=== PATIENT | female | born 1960 | race Caucasian/White ===

== ENCOUNTER 2017-01-11 09:08 | Emergency (ER) | payer OTHER ==
--- NOTE | 2017-01-11 12:16 | ED CLINICAL REPORT ---
Clinical Report - Physicians/Mid Levels Formerly [facility] [address] [place] [address] 01/11/2017 9:11 Patient: JESSICA FRANCOIS Time Seen: 09:44. Arrived- By private vehicle. Historian- patient. HISTORY OF PRESENT ILLNESS Chief Complaint: VOMITING and DIARRHEA. ABDOMINAL CRAMPS. This started about 2 days ago and is still present. It was gradual in onset and has been waxing/waning. No recent travel. She has had nausea and moderate abdominal pain. The pain is described as located in the upper abdomen. She has had vomiting (3 days ago - none since). The vomiting has occurred several times. No bilious emesis, blood-tinged emesis or frankly bloody emesis. She has had moderate diarrhea (3 days ago, none since). This has occurred several times. It has been watery. No bloody diarrhea. No black stools or bloody stools. Has not recently been camping or on antibiotics. The illness is described as moderate. Similar symptoms previously: Recent medical care: Not recently seen/assessed. REVIEW OF SYSTEMS The patient has had fever. No difficulty with urination, dark urine, headache, dizziness or sore throat. No cough, chest pain, difficulty breathing, excessive urination or skin rash. No jaundice, fainting episodes or blurred vision. Denies current . All systems otherwise negative, except as recorded above. PAST HISTORY See nurses notes. PCP: Dr Vazquez - [place] in [place] SURGERIES: Dilatation & Curettage. Ovarian cyst. Surgery for uterine hemorrhage. Attention deficit and hyperactivity disorder (taking Adderall for about 6 months). Medications: Adderall Oral 25 mg daily, XR. Allergies: Inapsine. Zithromax. SOCIAL HISTORY Smoker- current status unknown. Alcohol use; consumes about three liquor weekly. No drug use. ADDITIONAL NOTES The nursing notes have been reviewed. PHYSICAL EXAM Vital Signs: 01/11/2017 10:01 BP: 140/100. HR: 84. RR: 22. O2 saturation: 100%. Temp: 97.9 F. Pain level now: 7/10. Appearance: Alert. Oriented X3. Patient in moderate distress. Eyes: Eyes normal inspection. No pale conjunctivae or scleral icterus. ENT: Pharynx normal. No pharyngeal erythema or tonsillar exudate. The mucous membranes are not dry. Neck: Normal inspection. Neck supple. CVS: Heart sounds normal. Pulses normal. Respiratory: No respiratory distress. Breath sounds normal. Abdomen: Soft and nontender. Back: Normal inspection. Skin: Skin warm and dry. Normal skin color. No rash. Normal skin turgor. Extremities: Extremities exhibit normal ROM. No lower extremity edema. No calf tenderness. No lower extremity edema. Neuro: Oriented X 3. No motor deficit. No sensory deficit. LABS, X-RAYS, AND EKG Abdominal Sonogram: Normal study. The gallbladder is normal. Common duct is normal. Normal liver. Pancreas normal. Aorta normal. Kidney normal. No free fluid. The study was discussed with the radiologist (via tech). The study was interpreted by the radiologist. Laboratory Tests: UA-Culture if indicated: (ELBERT: 01/11/2017 10:10) ( [facility] 01/11/2017 10:35) Final results Test Result Flag Units (Reference) URINE COLOR YELLOW URINE APPEARANCE CLEAR URINE GLUCOSE NEGATIVE (NEGATIVE) URINE BILIRUBIN NEGATIVE (NEGATIVE) URINE KETONE NEGATIVE (NEGATIVE) URINE SPECIFIC GRAVITY 1.010 (1.010-1.030) URINE PH 6.0 (5.0-8.0) URINE PROTEIN NEGATIVE (NEGATIVE) URINE UROBILINOGEN 0.2 EU/dL (0.2-1.0) URINE NITRITE NEGATIVE (NEGATIVE) URINE BLOOD TRACE-INTACT (NEGATIVE) URINE LEUK ESTERASE NEGATIVE (NEGATIVE) URINE RBC 1-3 rbc/hpf (0-1) URINE WBC 0-1 wbc/hpf (0-1) URINE EPITHELIAL CELLS 0-1 EPI/hpf (0-5) URINE BACTERIA TRACE (<1+) (NONE SEEN) URINE COMMENT CULT NOT INDICATED URINE CULTURES ARE SET-UP BASED ON THE FOLLOWING CRITERIA:POSITIVE NITRITEPOSITIVE LEUKOCYTE ESTERASEGREATER THAN 10 WHITE BLOOD CELLSMODERATE (2+) OR GREATER BACTERIA CBC w Diff: (ELBERT: 01/11/2017 09:55) ( [facility] 01/11/2017 10:25) Final results Test Result Flag Units (Reference) WHITE BLOOD COUNT 6.1 K/uL (4.5-11.5) RED BLOOD COUNT 4.30 M/uL (4.00-5.20) HEMOGLOBIN 14.5 gm/dL (12.0-16.0) HEMATOCRIT 42.3 % (36.0-46.0) MEAN CELL VOLUME 98 fL (80-100) MEAN CORPUSCULAR HGB 34 pg (26-34) MEAN CORPUSCULAR HGB CONC 34 g/dL (31-37) RED CELL DISTRIBUTION WIDTH 12.3 % (11.6-14.8) PLATELET COUNT 178 K/uL (150-400) NEUTROPHIL % 59.2 % (50-75) LYMPH % 29.9 % (25-40) MONO % 8.9 % (3-14) EOSINOPHIL % 1.5 % (0-4) BASOPHIL % 0.5 % (0-2) PT with INR: (ELBERT: 01/11/2017 09:55) ( [facility] 01/11/2017 10:27) Final results Test Result Flag Units (Reference) INR 0.9 (0.8-1.2) Low Intensity Therapy: INR 1.5-2.0 PT range 18.5-23.1Mod.Intensity Therapy: INR 2.0-3.0 PT range 23.1-31.5High Intensity Therapy: INR 2.5-3.5 PT range 27.4-35.5High Intensity Therapy 2: INR 3.0-4.0 PT range 31.5-39.3 BNP: (ELBERT: 01/11/2017 09:55) ( [facility] 01/11/2017 10:46) Final results Test Result Flag Units (Reference) B-TYPE NATRIURETIC PEPTIDE 25.8 pg/ml (5-100) Lactate, Serum: (ELBERT: 01/11/2017 10:26) ( [facility] 01/11/2017 11:12) Final results Test Result Flag Units (Reference) LACTIC ACID 0.7 mmol/L (0.4-2.0) CHEM 13 PANEL: (ELBERT: 01/11/2017 09:55) ( Msg[facility]cv[facility] 01/11/2017 10:42) Final results Test Result Flag Units (Reference) GLUCOSE 96 mg/dL (70-110) BUN 6 L mg/dL (7-18) CREATININE 0.6 mg/dL (0.6-1.3) Estimated GFR >60 mL/min Estimated GFR- >60 mL/min Note: Persistent reduction over 3 months in eGFR<60 mL/min/1.73 m2 defines CKD. Patients with eGFR values>=60 mL/min/1.73 m2 may also have CKD if evidence ofpersistent proteinuria. Additional information may be foundat www.kidney.org. SODIUM 139 mmol/L (136-145) POTASSIUM 3.9 mmol/L (3.5-5.1) CHLORIDE 102 mmol/L (98-107) CARBON DIOXIDE 25 mmol/L (21-32) CALCIUM 9.2 mg/dL (8.5-10.1) TOTAL PROTEIN 7.5 g/dL (6.4-8.2) ALBUMIN 3.8 g/dL (3.3-5.0) BILIRUBIN, TOTAL 0.5 mg/dL (0.0-1.0) ALKALINE PHOSPHATASE 74 U/L (46-116) AST (SGOT) 70 H U/L (15-37) ALT (SGPT) 107 H U/L (12-78) CPK 51 U/L (24-260) MAGNESIUM 1.8 mg/dL (1.8-2.4) LIPASE 132 U/L (73-393) AMYLASE 47 U/L (25-115) TROPONIN I <0.05 L ng/mL (0.00-1.5) TROPONIN REFERENCE RANGE:<0.1 NEGATIVE0.1-1.5 INDETERMINANT>1.5 POSITIVE ETHYL ALCOHOL 3 mg/dL (3-10) . Pulse Oximetry: 01/11/2017 10:01 O2 saturation: 100%. (FIO2 - room air). Interpretation: normal. PROGRESS AND PROCEDURES Course of Care: Normal Saline 1 liter IVPB given. Zofran 4 mg IVP given. Protonix 40 mg IVP given. Demerol 25mg IVP given. Nonsurgical abdominal exam now. Other than mild transaminase elevation, there are no other lab abnormalities. US is completely normal. 12:15 01/11/17. Patient is stable. Physical exam findings are improved. Symptoms much better. 01/11/2017 12:36 BP: 135/90. HR: 64. RR: 20. O2 saturation: 100%. Temp: 98.7 F. Pain level now: 10. Patient/family counseled. Disposition: Discharged. Condition: stable and improved. CLINICAL IMPRESSION Vomiting with nausea. Not intractable or bilious. Diarrhea Acute epigastric abdominal pain of undetermined cause. Acute alcoholic gastritis. No hemorrhagic gastritis. Abnormal liver function test: AST/SGOT and ALT/SGPT. Possible essential hypertension (transient). INSTRUCTIONS Rest. Do not work for three days. Drink plenty of fluids. No alcohol. Do not smoke. Seek medical help to quit smoking. (MANDATORY RECHECK IN 12 - 24 HOURS UNLESS BETTER). Warnings: Further evaluation is necessary in order to recheck abnormal lab, obtain test results, conduct further tests and assess the possibility of serious illness. It is very important to follow up with a physician. SEDATIVE MEDICATION: You were given sedative medication during your visit. Do not drive or operate dangerous machinery. CONTROLLED SUBSTANCE WARNINGS. GENERAL WARNINGS: Return or contact your physician immediately if your condition worsens or changes unexpectedly, if not improving as expected, or if other problems arise. Your Current Medications: CONTINUE TAKING THE FOLLOWING MEDICATIONS: Adderall Oral : 25 mg daily, XR. Prescription Medications: Hydrocodone/APAP 5mg / 325mg: take 1-2 orally every 8 hours as needed for pain. Dispense ten (10). No refill. Zofran (orally disintegrating tablets) 4 mg: take 1 orally every 8 hours as needed for nausea and vomiting. Dispense ten (10). No refill. Substitution is permissible. Prilosec 20 mg capsules: Take 1 capsule orally once daily. Dispense fifteen (15). No refills. Substitution is permissible. Follow-up: Follow up with your doctor Taylor - or colleague at [facility] tomorrow. Screening today revealed the patient's blood pressure to be in the hypertensive range. The patient should follow up with a primary care provider for blood pressure management. (Electronically signed by Perez Buenrostro DO 01/11/2017 17:37)
--- NOTE | 2017-01-11 12:16 | ED NURSING NOTES ---
Clinical Report - Nurses [facility] [address] [place] [address] 01/11/2017 9:11 Patient: JESSICA FRANCOIS TRIAGE Triage time 10:01. Acuity: LEVEL 3. Chief Complaint: ABDOMINAL PAIN, NAUSEA and VOMITING and (started with nausea/vomiting/diarrhea, now pt states she is having sharp stabbing pains in abdomen that kept her awake since midnight last night). 10:08 01/11/17. Alert. OLEG COMA SCORE: Oleg Coma Scale: 15- eyes open spontaneously (4); best verbal response- oriented x 4 (5); best motor response- obeys commands (6). --10:09 Julianna Bennett R.N. 10:01 01/11/17. BP: 140/100. HR: 84. RR: 22. O2 saturation: 100%. Temp: 97.9 F. Pain level now: 04/07. --10:09 Julianna Bennett R.N. Weight: 58.9 kg stated. Height/Length: 62 inches Per Patient. BMI: 23.8. --10:03 Julianna Bennett R.N. Medications Adderall Oral 25 mg daily, XR. --10:03 Julianna Bennett R.N. Allergies Inapsine. Zithromax. --10:03 Julianna Bennett R.N. History Arrived by private vehicle. Historian: patient. Accompanied by (SON). Primary physician (Klem). Onset. (2 days ago). Treatment MEDIA LIBRARIAN: None. PAST MEDICAL HX: Immunizations: up-to-date. Last normal menstrual period- 9 months ago. Denies current . SOCIAL HX: Heavy tobacco smoker (cigarette)- 1 pack per day. Alcohol use; consumes three liquor drinks weekly. No drug use. The patient was not exposed to MRSA. NUTRITIONAL RISK ASSESSMENT: The nutritional risk assessment revealed no deficiencies. FUNCTIONAL ASSESSMENT: Functional assessment: no impairments noted. LEARNING NEEDS ASSESSMENT: The learning needs assessment revealed no barriers. ABUSE ASSESSMENT: Abuse assessment: ("YES") The patient was asked "Do you feel safe in your home?". --10:09 Julianna Bennett R.N. ADDITIONAL SURGERIES: Dilatation & Curettage. Ovarian cyst. Surgery for uterine hemorrhage. --10:08 Julianna Bennett R.N. Interventions ID band on patient. To room. --10:09 Julianna Bennett R.N. PHYSICAL ASSESSMENT 10:01/11/17. Patient gowned. GENERAL / NEURO / PSYCH: Appears in pain, anxious and in distress. --10:09 Julianna Bennett R.N. NURSING PROGRESS NOTES 09:56 01/11/2017 Site #1 started via IV in the left wrist with an 20g angiocath; two attempts. Blood drawn: rainbow set. Labeled in the presence of the patient and sent to the lab. Saline lock flushed with saline. --10:01 Julianna Bennett R.N. 10:01/11/17. Head of bed elevated. Reassurance given. Patient identifiers checked. Call light placed in reach. Bed placed in lowest position. Patient ready for evaluation- chart flagged and ED physician notified (ERMD has already been in room). --10:09 Julianna Bennett R.N. 10:15. Care transferred (to Margaret GRESHAM). --10:25 Julianna Bennett R.N. 10:22. ( lab here to draw lactate). --10:28 Margaret Metz R.N. 10:20 01/11/2017 Started bag #1 1000 mL IV Fluids IV NS (Saline); at 1000 mL/hr over 1 hour(s) via site #1 via IV pump. IV patency established. IV site checked: no pain, redness, or swelling. IV flushed thoroughly pre- and post-medication administration. --10:29 Margaret Metz R.N. 10:21 01/11/2017 Zofran (Ondansetron HCl) IVP 4 mg given over 1 minute(s) via site #1. IV patency established. IV site checked: no pain, redness, or swelling. IV flushed thoroughly pre- and post-medication administration. IVP given by RN. --10:29 Margaret Metz R.N. 10:22 01/11/2017 PROTONIX (Pantoprazole Sodium) IVP 40 mg given over 2 minute(s) via site #1. IV patency established. IV site checked: no pain, redness, or swelling. IV flushed thoroughly pre- and post-medication administration. IVP given by RN. --10:30 Margaret Metz R.N. 10:25 01/11/17. BP: 135/83. HR: 63. RR: 22. O2 saturation: 100%. Temp: deferred. Pain level now: 04/07. Additional comments: Pt asking for pain meds, states she was not able to sleep during night due to pain. ERMD notified of request . --10:31 Margaret Metz R.N. 10:52 01/11/2017 Demerol (Meperidine HCl) IVP 25 mg given over 1 second(s) via site #1. IV patency established. IV site checked: no pain, redness, or swelling. IV flushed thoroughly pre- and post-medication administration. IVP given by RN. --10:52 Margaret eMtz R.N. 10:50 01/11/17. BP: 126/81. HR: 78. RR: 18. O2 saturation: 100%. Pain level now: 05/08. --10:54 Margaret Metz R.N. 11:05 01/11/17. Reassessment after medication administered. Overall patient status is the same- she states feels the same (pain 6/10 slightly better, but still having waves of pain, but now more point tenderness in lower midline abd instead of just under rib cage). --11:05 Margaret Metz R.N. 11:06 01/11/17. BP: 121/92. HR: 82. RR: 22. O2 saturation: 99%. Pain level now 6/10. --11:06 Margaret Metz R.N. 11:26 01/11/2017 IV Fluids IV NS Discontinued: bag #1 infused. Total amount infused: 1000 mL. IV patency established. IV site checked: no pain, redness, or swelling. IV flushed thoroughly. --11:31 Geovanna Davila R.N. 11:32 01/11/2017 Started bag #2 1000 mL IV Fluids IV NS (Saline); at 500 mL/hr over 2 hour(s) via site #1 via IV pump. Allergies verified and confirmed 5 rights. IV patency established. IV site checked: no pain, redness, or swelling. IV flushed thoroughly pre- and post-medication administration. --11:32 Geovanna Davila R.N. 11:25. ( Pt ambulated to bathroom). --12:03 Margaret Metz R.N. 11:50 US at bedside doing exam. --12:05 Margaret Metz R.N. 12:20 01/11/2017 Demerol (Meperidine HCl) IVP 25 mg given over 1 minute(s) via site #1. IV patency established. IV site checked: no pain, redness, or swelling. IV flushed thoroughly pre- and post-medication administration. IVP given by RN. --12:35 Margaret Metz R.N. 12:25 01/11/2017 Site #1 removed upon discharge. Bandaid applied. --12:36 Margaret Metz R.N. 12:25 01/11/2017 IV Fluids IV NS Discontinued: bag #2 STOPPED upon discharge. Total amount infused: 500 mL. IV patency established. IV site checked: no pain, redness, or swelling. IV flushed thoroughly. --12:35 Margaret Metz R.N. 12:15 ERMD in talking with pt and family at length regarding findings and need for follow up. --12:39 Margaret Metz R.N. 12:20 Pt given additional pain meds before IV dc'd for home. --12:39 Margaret Metz R.N. DISPOSITION / DISCHARGE 12:30. Condition at departure: improved and stable. No learning barriers present. Discharge instructions provided and reviewed with the patient and spouse. Reviewed medication(s) (vicodin, zofran, prilosec). Patient and spouse verbalized understanding. Written instructions provided in Mongolian. The patient was discharged home and accompanied by spouse. She left the Emergency Department ambulatory and via private vehicle. Spouse driving. --12:38 Margaret Metz R.N. 12:36 01/11/17. BP: 135/90. HR: 64. RR: 20. O2 saturation: 100%. Temp: 98.7 F. Pain level now: 02/05. --12:38 Margaret Metz R.N. Locked/Released at 01/11/2017 12:55 by Margaret Metz R.N.
--- NOTE | 2017-01-11 12:16 | ED ORDER SUMMARY ---
..... Patient: JESSICA FRANCOIS OrderSheet [facility] VisitID: [id number] [address] [place] [address] 56y, F Registration Date/Time: 01/11/2017 ORDER SHEET Weight: 58.9 kg (stated) Allergies: Inapsine, Zithromax GENERAL ORDERS: UA-Culture if indicated [facility] (Ack 10:02 TBergley) (10:11 LSullivan R.N.) [facility] (Ack 10:02 TBergley) (10:11 LSullivan R.N.) Lipase Urgent (01/11/2017 RUST DO) (Ack 10:02 TBergley) (10:11 LSullivan R.N.) Cardiac Panel Stat (01/11/2017 RUST) (Ack 10:02 TBergley) (10:11 LSullivan R.N.) PT with INR Urgent (01/11/2017 RUSTson ) (Ack 10:02 TBergley) (10:11 LSullivan R.N.) BNP Urgent (01/11/2017 RUSTson DO) (Ack 10:02 TBergley) (10:11 LSullivan R.N.) Ethyl Alcohol Urgent ([facility]11/2017 [facility] (Ack 10:02 TBergley) (10:11 LSullivan R.N.) Lactate, Serum Urgent (:01/11/2017 [facility]UST[facility]inson DO) (Ack 10:02 TBergley) (10:30 DDean R.N.) NPO (:[facility]/11/[facility] (Ack 10:02 TBergley) (10:11 LSullivan R.N.) US Abdomen Limited (Yes) Urgent (10:48 01/11/2017 [facility] (Ack 10:49 TBergley) (12:05 DDean R.N.) MEDICATION ORDERS: IV FLUIDS: IV NS : initial bolus 1000 mL (1000 mL/hr), then 500 mL/hr for X2 (NOW) (09:52 01/11/2017 [facility]) (10:29 DDean R.N.) Zofran IV 4 mg (NOW) (09:52 01/11/2017 [facility]) (10:29 DDean R.N.) Protonix IVP 40mg 40 mg (Mix in NS 10ml over 2min) (09:53 01/11/2017 [facility]) (10:30 DDean R.N.) Demerol IV 25 mg (HIGH ALERT MEDICATION, NOW) (10:39 01/11/2017 [facility]) (Ack 10:48 DDean R.N.) (10:52 DDean R.N.) Demerol IV 25 mg (NOW) (12:34 01/11/2017 DDean R.N. per protocol) (12:35 DDean R.N.) ORDER SHEET NOTES: [Electronically signed by Margaret Metz R.N. (12:55 01/11/2017)] [Electronically signed by Perez Buenrostro DO (17:37 01/11/2017)] [Electronically locked/signed by Margaret Metz R.N. (12:55 01/11/2017)]
--- NOTE | 2017-01-11 12:16 | ED ORDER SUMMARY ---
..... Patient: JESSICA FRANCOIS OrderSheet [facility] VisitID: [id number] [address] [place] [address] 56y, F Registration Date/Time: 01/11/2017 ORDER SHEET Weight: 58.9 kg (stated) Allergies: Inapsine, Zithromax GENERAL ORDERS: UA-Culture if indicated [facility] (Ack 10:02 TBergley) (10:11 LSullivan R.N.) [facility] (Ack 10:02 TBergley) (10:11 LSullivan R.N.) Lipase Urgent (01/11/2017 [facility] DO) (Ack 10:02 TBergley) (10:11 LSullivan R.N.) Cardiac Panel Stat (01/11/2017 [facility]) (Ack 10:02 TBergley) (10:11 LSullivan R.N.) PT with INR Urgent ([facility] (Ack 10:02 TBergley) (10:11 LSullivan R.N.) BNP Urgent ([facility]/11/[facility]) (Ack 10:02 TBergley) (10:11 LSullivan R.N.) Ethyl Alcohol [facility]11[facility] (Ack 10:02 TBergley) (10:11 LSullivan R.N.) Lactate, Serum Urgent [facility] (Ack 10:02 TBergley) (10:30 DDean R.N.) NPO (:[facility]11[facility] (Ack 10:02 TBergley) (10:11 LSullivan R.N.) US Abdomen Limited (Yes) Urgent (10:48 [facility]11/2017 [facility] (Ack 10:49 TBergley) (12:05 DDean R.N.) MEDICATION ORDERS: IV FLUIDS: IV NS : initial bolus 1000 mL (1000 mL/hr), then 500 mL/hr for X2 (NOW) (09:52 01/11/2017 [facility]) (10:29 DDean R.N.) Zofran IV 4 mg (NOW) (09:52 01/11/2017 [facility]) (10:29 DDean R.N.) Protonix IVP 40mg 40 mg (Mix in NS 10ml over 2min) (09:53 01/11/2017 [facility]) (10:30 DDean R.N.) Demerol IV 25 mg (HIGH ALERT MEDICATION, NOW) (10:39 01/11/2017 [facility]) (Ack 10:48 DDean R.N.) (10:52 DDean R.N.) Demerol IV 25 mg (NOW) (12:34 01/11/2017 DDean R.N. per protocol) (12:35 DDean R.N.) ORDER SHEET NOTES: [Electronically signed by Margaret Metz R.N. (12:55 01/11/2017)] [Electronically signed by Perez Buenrostro DO (17:37 01/11/2017)] [Electronically locked/signed by Margaret Metz R.N. (12:55 01/11/2017)]
--- NOTE | 2017-01-11 13:12 | DIAGNOSTIC IMAGING REPORT ---
PROCEDURE: US ABDOMEN ULTRASOUND-LIMITED INDICATION: RUQ PAIN TECHNIQUE: Patel scale and color Doppler sonographic images of the abdomen were obtained. COMPARISON: None. FINDINGS: Liver measures 16.1 cm with diffuse increased echogenicity. Normal gallbladder without gallstones or wall thickening. Normal CBD measures 4.1 mm. Negative Hess's sign. Normal pancreas. Aorta and IVC are patent. Normal hepatopetal flow. Right kidney measures 10.6 cm with a 9 mm lower pole cortical echogenic lesion suggestive of an angiomyolipoma. IMPRESSION: 1. Normal gallbladder 2. Hepatic steatosis versus intrinsic liver disease. 3. Right renal angiomyolipoma.
--- NOTE | 2017-01-11 17:37 | ED MAR SUMMARY ---
..... Medication Administration Record [facility] [address] [place] [address] Patient: JESSICA FRANCOIS Visit ID: [id number] 56y, F Weight: 58.9 kg Height/Length: 62 in BMI: 23.8 ALLERGIES: Inapsine, Zithromax Start 10:20 01/11/2017 Margaret Metz R.N., Stop 11:26 01/11/2017 Geovanna Davila R.N. Medication Administered: IV NS (SALINE), Dose: IV Fluids over 1 hour(s), Rate: 1000 mL/hr, Dispensed: 1000 mL bag, Site: #1 left wrist. Medication Ordered: IV NS : initial bolus 1000 mL (1000 mL/hr), then 500 mL/hr for X2 (NOW). Given 10:01/11/2017 Margaret Metz R.N. Medication Administered: ZOFRAN [IVP] (ONDANSETRON HCL), Dose: 4 mg IVP over 1 minute(s), Site: #1 left wrist. Medication Ordered: Zofran IV 4 mg (NOW). Given 10:01/11/2017 Margaret Metz R.N. Medication Administered: PROTONIX [IVP] (PANTOPRAZOLE SODIUM), Dose: 40 mg IVP over 2 minute(s), Site: #1 left wrist. Medication Ordered: Protonix IVP 40mg 40 mg (Mix in NS 10ml over 2min). Given 10:52 01/11/2017 Margaret Metz R.N. Medication Administered: DEMEROL [IVP] (MEPERIDINE HCL), Dose: 25 mg IVP over 1 second(s), Site: #1 left wrist. Medication Ordered: Demerol IV 25 mg (HIGH ALERT MEDICATION, NOW). Start 11:32 01/11/2017 Geovanna Davila R.N., Stop 12:01/11/2017 Margaret Metz R.N. Medication Administered: IV NS (SALINE), Dose: IV Fluids over 2 hour(s), Rate: 500 mL/hr, Dispensed: 1000 mL bag, Site: #1 left wrist. Medication Ordered: IV NS : initial bolus 1000 mL (1000 mL/hr), then 500 mL/hr for X2 (NOW). Given 12:20 01/11/2017 IsaíasMargaret R.N. Medication Administered: DEMEROL [IVP] (MEPERIDINE HCL), Dose: 25 mg IVP over 1 minute(s), Site: #1 left wrist. Medication Ordered: Demerol IV 25 mg (NOW).
--- NOTE | 2017-01-11 17:37 | ED MAR SUMMARY ---
..... Medication Administration Record [facility] [address] [place] [address] Patient: JESSICA FRANCOIS Visit ID: [id number] 56y, F Weight: 58.9 kg Height/Length: 62 in BMI: 23.8 ALLERGIES: Inapsine, Zithromax Start 10:20 01/11/2017 Margaret Metz R.N., Stop 11:26 01/11/2017 Geovanna Davila R.N. Medication Administered: IV NS (SALINE), Dose: IV Fluids over 1 hour(s), Rate: 1000 mL/hr, Dispensed: 1000 mL bag, Site: #1 left wrist. Medication Ordered: IV NS : initial bolus 1000 mL (1000 mL/hr), then 500 mL/hr for X2 (NOW). Given 10:01/11/2017 Margaret Metz R.N. Medication Administered: ZOFRAN [IVP] (ONDANSETRON HCL), Dose: 4 mg IVP over 1 minute(s), Site: #1 left wrist. Medication Ordered: Zofran IV 4 mg (NOW). Given 10:01/11/2017 Margaret Metz R.N. Medication Administered: PROTONIX [IVP] (PANTOPRAZOLE SODIUM), Dose: 40 mg IVP over 2 minute(s), Site: #1 left wrist. Medication Ordered: Protonix IVP 40mg 40 mg (Mix in NS 10ml over 2min). Given 10:52 01/11/2017 Margaret Metz R.N. Medication Administered: DEMEROL [IVP] (MEPERIDINE HCL), Dose: 25 mg IVP over 1 second(s), Site: #1 left wrist. Medication Ordered: Demerol IV 25 mg (HIGH ALERT MEDICATION, NOW). Start 11:32 01/11/2017 Geovanna Davila R.N., Stop 12:01/11/2017 Margaret Metz R.N. Medication Administered: IV NS (SALINE), Dose: IV Fluids over 2 hour(s), Rate: 500 mL/hr, Dispensed: 1000 mL bag, Site: #1 left wrist. Medication Ordered: IV NS : initial bolus 1000 mL (1000 mL/hr), then 500 mL/hr for X2 (NOW). Given 12:20 01/11/2017 IsaíasMargaret R.N. Medication Administered: DEMEROL [IVP] (MEPERIDINE HCL), Dose: 25 mg IVP over 1 minute(s), Site: #1 left wrist. Medication Ordered: Demerol IV 25 mg (NOW).
--- NOTE | 2017-01-11 17:37 | ED MED RECONCILIATION SUMMARY ---
Patient: JESSICA FRANCOIS Medication Reconciliation Report [facility] VisitID: [id number] [address] [place] [address] 56y, F Registration Date/Time: 01/11/2017 Weight: 58.9 kg Height/Length: 62 in. BMI: 23.8 ALLERGIES: Inapsine, Zithromax The patient's Home Medications are listed below: CONTINUE TAKING THE FOLLOWING MEDICATIONS: Adderall Oral 25 mg daily, XR The source(s) of the original Home Medication information: Not obtained. The following Medications were given to the patient in the Emergency Department: IV NS IV Fluids bolus 0, then 1000 mL/hr, administered: 01/11/2017 10:20:00 AM Zofran [IVP] IVP 4 mg, administered: 01/11/2017 10:21:00 AM PROTONIX [IVP] IVP 40 mg, administered: 01/11/2017 10:22:00 AM Demerol [IVP] IVP 25 mg, administered: 01/11/2017 10:52:00 AM IV NS IV Fluids bolus 0, then 500 mL/hr, administered: 01/11/2017 11:32:00 AM Demerol [IVP] IVP 25 mg, administered: 01/11/2017 12:20:00 PM The following Medications were prescribed to the patient: Hydrocodone/APAP 5mg / 325mg: take 1-2 orally every 8 hours as needed for pain. Dispense ten (10). No refill. -- Perez Buenrostro DO Zofran (orally disintegrating tablets) 4 mg: take 1 orally every 8 hours as needed for nausea and vomiting. Dispense ten (10). No refill. Substitution is permissible. -- Perez Buenrostro DO Prilosec 20 mg capsules: Take 1 capsule orally once daily. Dispense fifteen (15). No refills. Substitution is permissible. -- Perez Buenrostro DO
--- NOTE | 2017-01-11 17:37 | ED MED RECONCILIATION SUMMARY ---
Patient: JESSICA FRANCOIS Medication Reconciliation Report [facility] VisitID: [id number] [address] [place] [address] 56y, F Registration Date/Time: 01/11/2017 Weight: 58.9 kg Height/Length: 62 in. BMI: 23.8 ALLERGIES: Inapsine, Zithromax The patient's Home Medications are listed below: CONTINUE TAKING THE FOLLOWING MEDICATIONS: Adderall Oral 25 mg daily, XR The source(s) of the original Home Medication information: Not obtained. The following Medications were given to the patient in the Emergency Department: IV NS IV Fluids bolus 0, then 1000 mL/hr, administered: 01/11/2017 10:20:00 AM Zofran [IVP] IVP 4 mg, administered: 01/11/2017 10:21:00 AM PROTONIX [IVP] IVP 40 mg, administered: 01/11/2017 10:22:00 AM Demerol [IVP] IVP 25 mg, administered: 01/11/2017 10:52:00 AM IV NS IV Fluids bolus 0, then 500 mL/hr, administered: 01/11/2017 11:32:00 AM Demerol [IVP] IVP 25 mg, administered: 01/11/2017 12:20:00 PM The following Medications were prescribed to the patient: Hydrocodone/APAP 5mg / 325mg: take 1-2 orally every 8 hours as needed for pain. Dispense ten (10). No refill. -- Perez Buenrostro DO Zofran (orally disintegrating tablets) 4 mg: take 1 orally every 8 hours as needed for nausea and vomiting. Dispense ten (10). No refill. Substitution is permissible. -- Perez Buenrostro DO Prilosec 20 mg capsules: Take 1 capsule orally once daily. Dispense fifteen (15). No refills. Substitution is permissible. -- Perez Buenrostro DO
--- NOTE | 2017-01-11 17:37 | ED DISCHARGE INSTRUCTIONS ---
Patient: JESSICA FRANCOIS General Instructions [facility] VisitID: [id number] [address] [place] [place] [address] 56y, F Registration Date/Time: 01/11/2017 Vomiting with nausea. Not intractable or bilious. Diarrhea Acute epigastric abdominal pain of undetermined cause. Acute alcoholic gastritis. No hemorrhagic gastritis. Abnormal liver function test: AST/SGOT and ALT/SGPT. INSTRUCTIONS Rest. Do not work for three days. Drink plenty of fluids. No alcohol. Do not smoke. Seek medical help to quit smoking. (MANDATORY RECHECK IN 12 - 24 HOURS UNLESS BETTER). Warnings: Further evaluation is necessary in order to recheck abnormal lab, obtain test results, conduct further tests and assess the possibility of serious illness. It is very important to follow up with a physician. SEDATIVE MEDICATION: You were given sedative medication during your visit. Do not drive or operate dangerous machinery. CONTROLLED SUBSTANCE WARNINGS. GENERAL WARNINGS: Return or contact your physician immediately if your condition worsens or changes unexpectedly, if not improving as expected, or if other problems arise. Your Current Medications: CONTINUE TAKING THE FOLLOWING MEDICATIONS: Adderall Oral : 25 mg daily, XR. Prescription Medications: Hydrocodone/APAP 5mg / 325mg: take 1-2 orally every 8 hours as needed for pain. Dispense ten (10). No refill. Zofran (orally disintegrating tablets) 4 mg: take 1 orally every 8 hours as needed for nausea and vomiting. Dispense ten (10). No refill. Substitution is permissible. Prilosec 20 mg capsules: Take 1 capsule orally once daily. Dispense fifteen (15). No refills. Substitution is permissible. Follow-up: Follow up with your doctor Taylor - or colleague at [facility] tomorrow. Screening today revealed the patient's blood pressure to be in the hypertensive range. The patient should follow up with a primary care provider for blood pressure management. ADDITIONAL INFORMATION Vomiting [6Yr-Adult] Vomiting is a common symptom that may be due to different causes. These include gastroenteritis ("stomach flu"), food poisoning and gastritis. There are other more serious causes of vomiting which may be hard to diagnose early in the illness. Therefore, it is important to watch for the warning signs listed below. The main danger from repeated vomiting is dehydration. This is due to excess loss of water and minerals from the body. When this occurs, body fluids must be replaced. Home Care: If symptoms are severe, rest at home for the next 24 hours. You may use acetaminophen (Tylenol) or ibuprofen (Motrin, Advil) to control fever, unless another medicine was prescribed. [NOTE : If you have chronic liver or kidney disease or ever had a stomach ulcer or GI bleeding, talk with your doctor before using these medicines.] (Aspirin should never be used in anyone under 18 years of age who is ill with a fever. It may cause severe liver damage.) Avoid tobacco and alcohol use, which may worsen your symptoms. If medicines for vomiting were prescribed, take as directed. Once vomiting stops, then follow these guidelines: During The First 12-24 Hours follow the diet below: FRUIT JUICES: Apple, grape juice, clear fruit drinks, and electrolyte replacement drinks. BEVERAGES: Soft drinks without caffeine; mineral water (plain or flavored), decaffeinated tea and coffee. SOUPS: Clear broth, consomm and bouillon DESSERTS: Plain gelatin, popsicles and fruit juice bars. As you feel better, you may add 6-8 ounces of yogurt per day. During The Next 24 Hours you may add the following to the above: Hot cereal, plain toast, bread, rolls, crackers Plain noodles, rice, mashed potatoes, chicken noodle or rice soup Unsweetened canned fruit (avoid pineapple), bananas Limit caffeine and chocolate. No spices or seasonings except salt. During The Next 24 Hours Gradually resume a normal diet, as you feel better and your symptoms lessen. Follow Up with your doctor as advised if you are not improving over the next 2-3 days. Get Prompt Medical Attention if any of the following occur: Constant right-sided lower abdominal pain or increasing general abdominal pain Continued vomiting (unable to keep liquids down) for 24 hours Frequent diarrhea (more than 5 times a day); blood (red or black color) or mucus in diarrhea Reduced urine output or extreme thirst Weakness, dizziness or fainting Unusually drowsy or confused Fever of 100.4F (38C) oral or higher, not better with fever medication Yellow color of the eyes or skin Diarrhea, Uncertain Cause (Adult, Report Pending) Diarrhea has several possible causes. Commonstomach fluis caused by a virus. Food poisoning, bacteria or parasites are other causes for diarrhea. Only diarrhea caused by bacteria or parasites requires treatment with an antibiotic. Diarrhea from a virus or food poisoning improves with simple home treatment. A stool sample is needed to make the diagnosis of an infection with bacteria or parasites. Up to three stool specimens may be required to diagnose This may take up to two days to get the result. It may be necessary to wait until the stool test is complete to make the diagnosis and select the best antibiotic to prescribe. Home Care: If symptoms are severe, rest at home for the next 24 hours or until you are feeling better. You may use acetaminophen (Tylenol) or ibuprofen (Motrin, Advil) to control fever, unless another medicine was prescribed. [NOTE: If you have chronic liver or kidney disease or ever had a stomach ulcer or GI bleeding, talk with your doctor before using these medicines.] (Aspirin should never be used in anyone under 18 years of age who is ill with a fever. It may cause severe liver damage.) Avoid tobacco, caffeine and alcohol, which may worsen your symptoms. If anti-diarrhea medicine was prescribed, take this only as directed. Sometimes anti-diarrhea medicine can make your condition worse if the cause is an infectious diarrhea. Therefore, anti-diarrhea medicine should not be taken for this condition unless advised by your doctor. During The First 12-24 Hours follow the diet below: BEVERAGES: Sport drinks like Gatorade, soft drinks without caffeine; maricruz lisa, mineral water (plain or flavored), decaffeinated tea and coffee. SOUPS: Clear broth, consomm and bouillon DESSERTS: Plain gelatin (Jell-O), popsicles and fruit juice bars. During The Next 24 Hours you may add the following to the above: Hot cereal, plain toast, bread, rolls, crackers Plain noodles, rice, mashed potatoes, chicken noodle or rice soup Unsweetened canned fruit (avoid pineapple), bananas Limit fat intake to less than 15 grams per day by avoiding margarine, butter, oils, mayonnaise, sauces, gravies, fried foods, peanut butter, meat, poultry and fish. Limit fiber; avoid raw or cooked vegetables, fresh fruits (except bananas) and bran cereals. Limit caffeine and chocolate. No spices or seasonings except salt. During The Next 24 Hours Gradually resume a normal diet, as you feel better and your symptoms lessen. Follow Up with your doctor or as advised if you are not improving over the next two days. If you were asked to bring a specimen from home, bring the sample on the day of collection. You may call in 2 days (or as directed) for the results. Get Prompt Medical Attention if any of the following occur: Increasing abdominal pain or constant lower right abdominal pain Continued vomiting (unable to keep liquids down) Frequent diarrhea (more than 5 times a day) Blood in vomit or stool (black or red color) Reduced oral intake Dark urine, reduced urine output Weakness, dizziness, fainting Drowsiness, confusion, stiff neck or seizure Fever of 100.4F (38C) oral or higher, not better with fever medication New rash Abdominal Pain,Uncertain Cause [Male] Based on your visit today, the exact cause of your abdominalpain is not clear. Your exam and tests do not indicate a dangerous cause at this time. However, the signs of a serious problem may take more time to appear. Although your evaluation was reassuring today, sometimes early in the course of many conditions, exam and lab tests can appear normal. Therefore, it is important for you to watch for any new symptoms or worsening of your condition. Causes It may not be obvious what caused your symptoms. Pay attention to things that do seem to make your symptoms worse or better and discuss this with your doctor when you follow up. Diagnosis The evaluation of abdominal pain in the emergency department may onlyrequire an exam by the doctor or it may include blood, urine or imaging studies, depending on many factors. Sometimes exams and tests can identify a cause but in many cases, a clear cause is not found. Further testing at follow up visits may help to suggest a clear diagnosis. Home Care Rest as much as possible until your next exam. Try to avoid any medications (unless otherwise directed by your doctor), foods, activities, or other factors that you may have contributed to your symptoms. Try to eat foods that you know that you have tolerated well in the past. Certain diets may be recommended for some conditions that cause abdominal pain. However, since the cause of your symptoms may not be clear, discuss your diet more with your primary care provider or specialist for further recommendations. Eating several small meals per day as opposed to 2 or 3 larger meals may help. Monitor closely for anything that may make your symptoms worse or better. Pay close attention to symptoms below that may indicate worsening of your condition. Follow Up and Precautions See your doctoras instructed or sooneror if your symptoms are not improving.In some cases, you may need more testing. When to Seek Medical Attention Contact your doctor or see medical attention ifany of the following occur: Pain is becoming worse You are unable to take your medications due to excessive vomiting Swelling of the abdomen Fever of 100.4F (38C) or higher, or as directed by your health care provider Blood in vomit or bowel movements (dark red or black color) Jaundice (yellow color of eyes and skin) New onset of weakness, dizziness or fainting New onset of chest, arm, back, neck or jaw pain Gastritis Versus Ulcer (No Antibiotic Tx) The symptoms of gastritis and peptic ulcer are very similar. Both can cause a dull ache or burning pain in the upper abdomen. Other symptoms include nausea, vomiting, loss of appetite, and belching or bloating. Blood in the vomit or stools (red or black) is a sign of bleeding in the stomach. This requires immediate medical attention. A Peptic Ulcer is an open sore in the lining of the stomach or duodenum (upper intestine). The most common cause of peptic ulcer disease is a bacterial infection (H pylori) in the stomach. Another common cause is taking anti-inflammatory medications (such as ibuprofen, prednisone, and aspirin). Gastritis is an irritation of the stomach lining. It can be acute (recent) or chronic (lasting a long time). Gastritis can be caused by overuse of alcohol or anti-inflammatory medications (such as aspirin, ibuprofen, prednisone). H pyloriinfection can also cause chronic gastritis. Tests for H pyloriare used to screen for bacterial infection. If no infection is found, ulcer and gastritis can be treated by stopping the cause, such as anti-inflammatory medications, alcohol, caffeine, and tobacco, and treating with antacids plus an acid anali medication. If H pylori infection is found, antibiotics will be prescribed along with an acid anali. Persons 55 years and older may undergo other tests before treatment is started. Two common tests are used to evaluate your symptoms. An upper GI series is an x-ray taken after you drink a chalky liquid called barium. This coats the stomach and allows an ulcer to show up on the x-ray. Another test is called endoscopy during which a long thin tube called an endoscope is passed down your throat to the stomach. A camera at the end of the scope allows the doctor to view inside the stomach to check the cause of your symptoms. Home Care: Take the prescribed acid anali medication for the full course of treatment even if you begin to feel better sooner. This medication can take up to several days to fully control your symptoms. If you cant afford the prescribed medication, you can try [id number] acid blockers, such as Pepcid AC, Tagamet, Zantac, or Aciphex. If these do not relieve your symptoms, a stronger acid-anali can be tried, such as Prilosec OTC. If you have been prescribed an antibiotic to treat H pyloriinfection, finish the full course of medication. Do so even if you begin to feel better sooner. If you stop the medication too soon, the infection can return and be harder to treat. You can use antacids, such as Tums, Rolaids, Mylanta, or Maalox, for pain. This will be useful the first few days after starting acid blockers when the blockers havent started working yet. Follow the directions on the label. Liquid antacids may work better than tablets. Note that antacids can interfere with absorption of certain medications. Specifically, do not take Tagamet (cimetidine), Zantac (ranitidine), or Carafate (sucralfate) within 1 hour of taking an antacid. Talk with your pharmacist if you have any questions. Although foods do not cause an ulcer, symptoms can be worsened by certain foods. Limit or avoid fatty, fried, and spicy foods, as well as coffee, chocolate, mint, and foods with high acid content such as tomatoes and citrus fruit and juices (orange, grapefruit, lemon). Avoid alcohol, caffeine, and tobacco, which can delay healing. Avoid aspirin and anti-inflammatory medications such as ibuprofen (Advil, Motrin) and naproxen (Naprosyn, Aleve). Acetaminophen (Tylenol) is safe to use. Do not take more than the amount listed on the label. Follow Up with your doctor or as advised. Further testing may be needed. If you do not begin to improve over the next 4 days, contact your doctor. If you had tests, youll be notified of any new findings that affect your care. Get Prompt Medical Attention if any of the following occur: Stomach pain gets worse or moves to the lower right abdomen (appendix area) Chest pain appears or gets worse, or spreads to the back, neck, shoulder, or arm Frequent vomiting (cant keep down liquids) Blood in the stool or vomit (red or black in color) Feeling weak or dizzy, fainting, or trouble breathing Fever of 100.4F (38C) or higher, or as directed by your healthcare provider High Blood Pressure -- To Be Confirmed [No Tx] Your blood pressure was higher today than normal. Sometimes anxiety or pain can cause a temporary rise in blood pressure that later returns to normal. If your blood pressure is high on one measurement, this does not mean that you have hypertension (a chronic illness). However, you must have your blood pressure measured again within the next few days to find out if its still high. A normal blood pressure is 120/80 or less. The first (top) number is the "systolic" pressure. The second (bottom) number is the "diastolic" pressure. Hypertension exists when either the top number is 140 or higher, OR the bottom number is 90 or higher on repeated measurements. Blood pressure in the range of 120-140 (systolic) or 80-89 (diastolic) is considered "pre-hypertension". This means your are at risk for getting hypertension. You should have regular blood pressure checks to be sure your blood pressure is not rising. Home Care: Measure your blood pressure on 3 different days and write down the results. This can be done at your doctor's office or this facility. Some pharmacies and grocery stores offer automated blood pressure machines for your use. Follow Up: If your blood pressure is "high" (over 120/80) on 2 out of 3 days, you will need to follow up with your doctor for further evaluation and treatment. DO NOT PUT THIS OFF! Untreated high blood pressure increases the risk for heart attack, also known as acute myocardial infarction, or AMI, and stroke. It is a treatable condition. Get Prompt Medical Attention if any of the following occur: Chest pain or shortness of breath Severe headache Throbbing or rushing sound in the ears Nosebleed Sudden severe abdominal pain Extreme drowsiness, confusion or fainting Dizziness or vertigo (dizziness with spinning sensation) Weakness of an arm or leg or one side of the face Difficulty with speech or vision How To Quit Smoking Smoking is one of the hardest habits to break. About half of all those who have ever smoked have been able to quit, and most of those (about 70%) who still smoke want to quit. Here are some of the best ways to stop smoking. Keep Trying: It takes most smokers about 8 tries before they are finally able to fully quit. So, the more often you try and fail, the better your chance of quitting the next time! So, don't give up! Go Cold Munith: Most ex-smokers quit cold turkey. Trying to cut back gradually doesn't seem to work as well, perhaps because it continues the smoking habit. Also, it is possible to fool yourself by inhaling more while smoking fewer cigarettes. This results in the same amount of nicotine in your body! Get Support: Support programs can make an important difference, especially for the heavy smoker. These groups offer lectures, methods to change your behavior and peer support. Call the free national Quitline for more information. 309-BHKG-WEF (970-702-9895). Low-cost or free programs are offered by many hospitals, local chapters of the [place] [employer] (984-415-4345) and the [place] [employer] (835-567-2747). Support at home is important too. Non-smokers can help by offering praise and encouragement. If the smoker fails to quit, encourage them to try again! Ngnn-Knh-Pyrqthz Medicines: For those who can't quit on their own, Nicotine Replacement Therapy (NRT) may make quitting much easier. Certain aids such as the nicotine patch, gum and lozenge are available without a prescription. However, it is best to use these under the guidance of your doctor. The skin patch provides a steady supply of nicotine to the body. Nicotine gum and lozenge gives temporary bursts of low levels of nicotine. Both methods take the edge off the craving for cigarettes. WARNING: If you feel symptoms of nicotine overdose, such as nausea, vomiting, dizziness, weakness, or fast heartbeat, stop using these and see your doctor. Prescription Medicines: After evaluating your smoking patterns and prior attempts at quitting, your doctor may offer a prescription medicine such as bupropion (Zyban, Wellbutrin), varenicline (Chantix, Champix), a niocotine inhaler or nasal spray. Each has its unique advantage and side effects which your doctor can review with you. Health Benefits Of Quitting: The benefits of quitting start right away and keep improving the longer you go without smokin minutes: blood pressure and pulse return to normal 8 hours: oxygen levels return to normal 2 days: ability to smell and taste begins to improve as damaged nerves start to regrow 2-3 weeks: circulation and lung function improves 1-9 months: decreased cough, congestion and shortness of breath; less tired 1 year: risk of heart attack decreases by half 5 years: risk of lung cancer decreases by half; risk of stroke becomes the same as a non-smoker For information about how to quit smoking, visit the following links: National Cancer [place] , Clearing the Air, Quit Smoking Today - an online booklet. http://www.smokefree.gov/pubs/clearing_the_air.pdf Smokefree.gov http://smokefree.gov/ QuitNet http://www.quitnet.com/ Hydrocodone Bitartrate, Acetaminophen Oral tablet What is this medicine? ACETAMINOPHEN; HYDROCODONE (a set a SUZETTE luisito fen; ailyn droe KOE done) is a pain reliever. It is used to treat mild to moderate pain. How should I use this medicine? Take this medicine by mouth. Swallow it with a full glass of water. Follow the directions on the prescription label. If the medicine upsets your stomach, take the medicine with food or milk. Do not take more than you are told to take. Talk to your aircraft engine mechanic overhaul regarding the use of this medicine in children. This medicine is not approved for use in children. What side effects may I notice from receiving this medicine? Side effects that you should report to your doctor or health long term care phlebotomist as soon as possible: allergic reactions like skin rash, itching or hives, swelling of the face, lips, or tongue breathing problems confusion feeling faint or lightheaded, falls stomach pain yellowing of the eyes or skin Side effects that usually do not require medical attention (report to your doctor or health long term care phlebotomist if they continue or are bothersome): nausea, vomiting stomach upset What may interact with this medicine? alcohol antihistamines isoniazid medicines for depression, anxiety, or psychotic disturbances medicines for sleep muscle relaxants naltrexone narcotic medicines (opiates) for pain phenobarbital ritonavir tramadol What if I miss a dose? If you miss a dose, take it as soon as you can. If it is almost time for your next dose, take only that dose. Do not take double or extra doses. Where should I keep my medicine? Keep out of the reach of children. This medicine can be abused. Keep your medicine in a safe place to protect it from theft. Do not share this medicine with anyone. Selling or giving away this medicine is dangerous and against the law. Store at room temperature between 15 and 30 degrees C (59 and 86 degrees F). Protect from light. Keep container tightly closed. Throw away any unused medicine after the expiration date. Discard unused medicine and used packaging carefully. Pets and children can be harmed if they find used or lost packages. What should I tell my health care provider before I take this medicine? They need to know if you have any of these conditions: brain tumor Crohn's disease, inflammatory bowel disease, or ulcerative colitis drink more than 3 alcohol-containing drinks per day drug abuse or addiction head injury heart or circulation problems kidney disease or problems going to the bathroom liver disease lung disease, asthma, or breathing problems an unusual or allergic reaction to acetaminophen, hydrocodone, other opioid analgesics, other medicines, foods, dyes, or preservatives or trying to get breast-feeding What should I watch for while using this medicine? Tell your doctor or health long term care phlebotomist if your pain does not go away, if it gets worse, or if you have new or a different type of pain. You may develop tolerance to the medicine. Tolerance means that you will need a higher dose of the medicine for pain relief. Tolerance is normal and is expected if you take the medicine for a long time. Do not suddenly stop taking your medicine because you may develop a severe reaction. Your body becomes used to the medicine. This does NOT mean you are addicted. Addiction is a behavior related to getting and using a drug for a non-medical reason. If you have pain, you have a medical reason to take pain medicine. Your doctor will tell you how much medicine to take. If your doctor wants you to stop the medicine, the dose will be slowly lowered over time to avoid any side effects. You may get drowsy or dizzy when you first start taking the medicine or change doses. Do not drive, use machinery, or do anything that may be dangerous until you know how the medicine affects you. Stand or sit up slowly. There are different types of narcotic medicines (opiates) for pain. If you take more than one type at the same time, you may have more side effects. Give your health care provider a list of all medicines you use. Your doctor will tell you how much medicine to take. Do not take more medicine than directed. Call emergency for help if you have problems breathing. The medicine will cause constipation. Try to have a bowel movement at least every 2 to 3 days. If you do not have a bowel movement for 3 days, call your doctor or health long term care phlebotomist. Too much acetaminophen can be very dangerous. Do not take Tylenol (acetaminophen) or medicines that contain acetaminophen with this medicine. Many non-prescription medicines contain acetaminophen. Always read the labels carefully. Ondansetron Oral disintegrating tablet What is this medicine? ONDANSETRON (on JACOBY se nash) is used to treat nausea and vomiting caused by chemotherapy. It is also used to prevent or treat nausea and vomiting after surgery. How should I use this medicine? These tablets are made to dissolve in the mouth. Do not try to push the tablet through the foil backing. With dry hands, peel away the foil backing and gently remove the tablet. Place the tablet in the mouth and allow it to dissolve, then swallow. While you may take these tablets with water, it is not necessary to do so. Talk to your aircraft engine mechanic overhaul regarding the use of this medicine in children. Special care may be needed. What side effects may I notice from receiving this medicine? Side effects that you should report to your doctor or health long term care phlebotomist as soon as possible: allergic reactions like skin rash, itching or hives, swelling of the face, lips, or tongue breathing problems dizziness fast or irregular heartbeat feeling faint or lightheaded, falls fever and chills swelling of the hands and feet tightness in the chest Side effects that usually do not require medical attention (report to your doctor or health long term care phlebotomist if they continue or are bothersome): constipation or diarrhea headache What may interact with this medicine? Do not take this medicine with any of the following medications: -apomorphine -cisapride -dofetilide -dronedarone -pimozide -thioridazine -ziprasidone This medicine may also interact with the following medications: -carbamazepine -phenytoin -rifampicin -tramadol -other medicines that prolong the QT interval (cause an abnormal heart rhythm) What if I miss a dose? If you miss a dose, take it as soon as you can. If it is almost time for your next dose, take only that dose. Do not take double or extra doses. Where should I keep my medicine? Keep out of the reach of children. Store between 2 and 30 degrees C (36 and 86 degrees F). Throw away any unused medicine after the expiration date. What should I tell my health care provider before I take this medicine? They need to know if you have any of these conditions: heart disease history of irregular heartbeat liver disease low levels of magnesium or potassium in the blood an unusual or allergic reaction to ondansetron, granisetron, other medicines, foods, dyes, or preservatives or trying to get breast-feeding What should I watch for while using this medicine? Check with your doctor or health long term care phlebotomist as soon as you can if you have any sign of an allergic reaction. Omeprazole Magnesium Gastro-resistant tablet What is this medicine? OMEPRAZOLE (oh ME pray zol) prevents the production of acid in the stomach. It is used to treat the symptoms of heartburn. You can buy this medicine without a prescription. This product is not for long-term use, unless otherwise directed by your doctor or health long term care phlebotomist. How should I use this medicine? Take this medicine by mouth. Follow the directions on the product label. If you are taking this medicine without a prescription, take one tablet every day. Do not use for longer than 14 days or repeat a course of treatment more often than every 4 months unless directed by a doctor or healthcare professional. Take your dose at regular intervals every 24 hours. Swallow the tablet whole with a drink of water. Do not crush, break or chew. This medicine works best if taken on an empty stomach 30 minutes before breakfast. If you are using this medicine with the prescription of your doctor or healthcare professional, follow the directions you were given. Do not take your medicine more often than directed. Talk to your aircraft engine mechanic overhaul regarding the use of this medicine in children. Special care may be needed. What side effects may I notice from receiving this medicine? Side effects that you should report to your doctor or health long term care phlebotomist as soon as possible: allergic reactions like skin rash, itching or hives, swelling of the face, lips, or tongue bone, muscle or joint pain breathing problems chest pain or chest tightness dark yellow or brown urine diarrhea dizziness fast, irregular heartbeat feeling faint or lightheaded fever or sore throat muscle spasm palpitations redness, blistering, peeling or loosening of the skin, including inside the mouth seizures tremors unusual bleeding or bruising unusually weak or tired yellowing of the eyes or skin Side effects that usually do not require medical attention (Report these to your doctor or health long term care phlebotomist if they continue or are bothersome.): constipation dry mouth headache loose stools nausea What may interact with this medicine? Do not take this medicine with any of the following medications: atazanavir clopidogrel nelfinavir This medicine may also interact with the following medications: ampicillin certain medicines for anxiety or sleep certain medicines that treat or prevent blood clots like warfarin cyclosporine diazepam digoxin disulfiram iron salts phenytoin prescription medicine for fungal or yeast infection like itraconazole, ketoconazole, voriconazole saquinavir tacrolimus What if I miss a dose? If you miss a dose, take it as soon as you can. If it is almost time for your next dose, take only that dose. Do not take double or extra doses. Where should I keep my medicine? Keep out of the reach of children. Store at room temperature between 20 and 25 degrees C (68 and 77 degrees F). Protect from light and moisture. Throw away any unused medicine after the expiration date. What should I tell my health care provider before I take this medicine? They need to know if you have any of these conditions: black or bloody stools chest pain difficulty swallowing have had heartburn for over 3 months have heartburn with dizziness, lightheadedness or sweating liver disease stomach pain unexplained weight loss vomiting with blood wheezing an unusual or allergic reaction to omeprazole, other medicines, foods, dyes, or preservatives or trying to get breast-feeding What should I watch for while using this medicine? It can take several days before your heartburn gets better. Check with your doctor or health long term care phlebotomist if your condition does not start to get better, or if it gets worse. Do not treat diarrhea with over the counter products. Contact your doctor if you have diarrhea that lasts more than 2 days or if it is severe and watery. Do not treat yourself for heartburn with this medicine for more than 14 days in a row. You should only use this medicine for a 2-week treatment period once every 4 months. If your symptoms return shortly after your therapy is complete, or within the 4 month time frame, call your doctor or health long term care phlebotomist. You have been given the following additional information: Vomiting (6Y-Adult) Diarrhea, Unk Cause (Adult) Report Pendg Abdominal Pain, Unknown Cause, (Male) Gastritis Vs. Ulcer Hypertension, To Be Confirmed Smoking Cessation Hydrocodone Bitartrate, Acetaminophen Oral tablet Ondansetron Oral disintegrating tablet Omeprazole Magnesium Gastro-resistant tablet Rest. Do not work for three days. (Electronically signed by Perez Buenrostro DO 01/11/2017 17:37)
== END 2017-01-11 12:36 | disposition home or self-care (01) ==
LOC: ED SRH 09:08
DX: K29.20 Alcoholic gastritis without bleeding (principal); R11.2 Nausea with vomiting, unspecified; R19.7 Diarrhea, unspecified; R10.13 Epigastric pain; R79.89 Other specified abnormal findings of blood chemistry; F17.210 Nicotine dependence, cigarettes, uncomplicated; Z79.899 Other long term (current) drug therapy; Z88.1 Allergy status to other antibiotic agents
CPT/HCPCS: 90004; 90074; 90100; 90616; 91320; 92010; 92031; 92235; 92530; 92610; 92720; 94060; 95059